=== PATIENT | male | born 1970 | race Caucasian/White ===

== ENCOUNTER 2018-12-04 15:20 | Emergency (ER) | payer MEDICAID ==
[~2018-12-04] VITALS: Ht 175.3 cm; Wt 121.5 kg
[2018-12-04 15:23] VITALS: BP 134/83
--- NOTE | 2018-12-04 16:36 | NUR ---
PROVIDED RESOURCES FOR PRESCRIPTIONS. AMBULATED TO DISCHARGE WINDOW, STEADY GAIT.
== END 2018-12-04 16:39 | disposition home or self-care (01) ==
LOC: ED 16:05
DX: J20.9 Acute bronchitis, unspecified (principal); F17.200 Nicotine dependence, unspecified, uncomplicated
CPT/HCPCS: 71046; 93005; 99283

== ENCOUNTER 2018-12-17 00:05 | Emergency (ER) | payer MEDICAID ==
[~2018-12-17] VITALS: Ht 175.3 cm; Wt 112.1 kg
[2018-12-17 00:22] VITALS: BP 141/84
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
[2018-12-17 00:42] LABS: BASOPHILS # (AUTO) 0.03 x10^3/uL (0-0.1); BASOPHILS % (AUTO) 0 % (0-1); EOSINOPHILS # (AUTO) 0.09 x10^3/uL (0-0.4); EOSINOPHILS % (AUTO) 1 % (1-7); LYMPHOCYTES % (AUTO) 28 % (22-44); MD NO; MEAN CORPUSCULAR HEMOGLOBIN 31.5 pg (27.5-34.5); MEAN CORPUSCULAR HGB CONC 34.2 g/dL (33.2-36.2); MEAN CORPUSCULAR VOLUME 92.3 fL (81-97); MEAN PLATELET VOLUME 8.9 fL (7.4-10.4); MONOCYTES # (AUTO) 0.74 x10^3/uL (0.2-0.8); MONOCYTES % (AUTO) 10 % (2-9); NEUTROPHILS # (AUTO) 4.54 x10^3/uL (1.8-6.8); NEUTROPHILS % (AUTO) 60 % (42-75); PLATELET COUNT 199 x10^3/uL (130-400); RED BLOOD COUNT 4.53 x10^6/uL (4.38-5.82); RED CELL DISTRIBUTION WIDTH 13.8 % (9.4-14.8)
[2018-12-17 00:55] LABS: ALANINE AMINOTRANSFERASE 168 U/L (12-78); ALBUMIN 3.8 g/dL (3.4-5.0); ANION GAP 9 mmol/L (5-15); CALCIUM 9.2 mg/dL (8.5-10.1); CHLORIDE 107 mmol/L (98-107); CREATININE 1.12 mg/dL (0.7-1.3)
[2018-12-17 00:57] LABS: SALICYLATE LEVEL < 1.7 mg/dL (2.8-20.0)
[2018-12-17 00:58] LABS: ACETAMINOPHEN < 2 mcg/mL (10-30); ALKALINE PHOSPHATASE 74 U/L (45-117); BILIRUBIN,TOTAL 1.6 mg/dL (0.2-1.0); TOTAL PROTEIN 7.9 g/dL (6.4-8.2)
--- NOTE | 2018-12-17 01:25 | NUR ---
PT REQUESTING 3 SANDWICHES. PT INFORMED COFFEE CART IS CLOSED. POC DISCUSSED.
--- NOTE | 2018-12-17 01:37 | NUR ---
TELEPSYCH PAGED AT THIS TIME.
[2018-12-17 01:50] LABS: AMPHETAMINE SCREEN, URINE Positive (Negative); BARBITURATE SCREEN, URINE Negative (Negative); BENZODIAZEPINE SCREEN, URINE Positive (Negative); CANNABINOID SCREEN, URINE Negative (Negative); COCAINE SCREEN, URINE Negative (Negative); METHADONE SCREEN, URINE Negative (Negative); OPIATE SCREEN, URINE Negative (Negative)
--- NOTE | 2018-12-17 02:05 | NUR ---
PT GIVEN HIS BIBLE PER REQUEST. AWAITING TELEPSYCH AT THIS TIME.
--- NOTE | 2018-12-17 03:30 | NUR ---
TELEPSYCH DOCTOR SPEAKING WITH PATIENT.
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
== END 2018-12-17 05:19 | disposition home or self-care (01) ==
LOC: MERGE 01:07 → ED 01:07
DX: R45.851 Suicidal ideations (principal); F32.9 Major depressive disorder, single episode, unspecified; F15.10 Other stimulant abuse, uncomplicated; Z72.9 Problem related to lifestyle, unspecified
CPT/HCPCS: 36415; 71045; 80053; 80307; 80329; 85025; 99284; G0480